=== PATIENT | male | born 1990 | race Hispanic/Latino ===

== ENCOUNTER 2020-03-02 00:09 | Emergency (ER) | payer SELFPAY ==
[~2020-03-02] VITALS: Ht 170.2 cm; Wt 72.7 kg
[~2020-03-02 00:09] MED LIST: CEPHALEXIN500 MG OR; DEPO-MEDROL40 MG/ML IM; HYDROXYZ HCL25 MG PO
[2020-03-02 00:10] VITALS: BP 157/97
== END 2020-03-02 00:56 | disposition home or self-care (01) | DRG 605 ==
LOC: ED 00:09
PROC: 0HQ1XZZ Repair Face Skin, External Approach (ICD-10-PCS; principal; 2020-03-02)
DX: S01.81XA Laceration without foreign body of other part of head, initial encounter (principal); Y00.XXXA Assault by blunt object, initial encounter